=== PATIENT | female | born 1960 | race Native Hawaiian/Other Pacific Islander ===

== ENCOUNTER 2017-07-10 15:02 | Outpatient (CLI) | payer BC | END 2017-07-10 16:10 | disposition home or self-care (01) | LOC: MAMMO 15:02 | DX: Z12.31 Encounter for screening mammogram for malignant neoplasm of breast (principal) ==

== ENCOUNTER 2018-07-13 14:57 | Outpatient (CLI) | payer BC | END 2018-07-13 19:15 | disposition home or self-care (01) | LOC: MAMMO 14:57 | DX: Z12.31 Encounter for screening mammogram for malignant neoplasm of breast (principal) ==

== ENCOUNTER 2019-07-15 15:23 | Outpatient (CLI) | payer BC | END 2019-07-15 19:39 | disposition home or self-care (01) | LOC: MAMMO 15:23 | DX: Z12.31 Encounter for screening mammogram for malignant neoplasm of breast (principal) ==

== ENCOUNTER 2020-08-17 09:45 | Outpatient (CLI) | payer BC | END 2020-08-17 20:39 | disposition home or self-care (01) | LOC: MAMMO 09:45 | PROVIDERS: ATTEND Nurse Practitioner Family | DX: Z12.31 Encounter for screening mammogram for malignant neoplasm of breast (principal) ==

== ENCOUNTER 2021-08-20 15:07 | Outpatient (CLI) | payer BC | END 2021-08-20 22:11 | disposition home or self-care (01) | LOC: MAMMO 15:07 | PROVIDERS: ATTEND Internal Medicine | DX: Z12.31 Encounter for screening mammogram for malignant neoplasm of breast (principal) ==

== ENCOUNTER 2022-08-22 13:55 | Outpatient (CLI) | payer BC | END 2022-08-22 19:52 | disposition home or self-care (01) | LOC: MAMMO 13:55 | PROVIDERS: ATTEND Internal Medicine | DX: Z12.31 Encounter for screening mammogram for malignant neoplasm of breast (principal) ==

== ENCOUNTER 2023-08-25 14:19 | Outpatient (CLI) | payer BC | END 2023-08-25 19:46 | disposition home or self-care (01) | LOC: MAMMO 14:19 | PROVIDERS: ATTEND Obstetrics & Gynecology | DX: Z12.31 Encounter for screening mammogram for malignant neoplasm of breast (principal) ==